=== PATIENT | female | born 1960 | race Caucasian/White ===

== ENCOUNTER 2016-09-12 07:31 | Day surgery (SDC) | payer OTHER ==
[~2016-09-12] VITALS: Ht 167.6 cm; Wt 46.7 kg
[~2016-09-12 07:31] MED LIST: APRESOLINE100 MG PO; APRESOLINE50 MG PO; ASPIRIN81 M2 PO; BUMEX0.5 MG PO; CALCIUM 600 MG1 EACH PO; COLACE100 MG PO; COREG3.125 M1 PO; CYANOCOBAL1000 MCG/2 IM; FLONASE16 G1 BOTH NARES; FOSAMAX70 MG PO; IRON325 MG PO; ISOSORBIDE MONO30 MG PO; LANTUS 3 M100 UNITS1 SC; LEVOTHYROXINE75 MCG PO; LIPITOR40 MG PO; MIRALAX17 GM PO; NOVOLOG PE100 UNITS/ SC; PLAVIX75 MG PO; PROTONIX40 MG PO; VITAMIN B12 PO; ZOLOFT50 MG PO
[2016-09-12 08:49] LABS: HEMATOCRIT 26.7 % (36.0-46.0); MCH 31.8 PG (29.0-34.0); MCHC 33.7 G/DL (30.0-36.0); MCV 94.3 FL (83-99); MEAN PLAT.VOLUME 10.8 uM^3 (9.5-12.4); PLATELET COUNT 145 K/uL (156-360); RBC DIS.WIDTH-CV 14.2 % (11.8-14.6); RBC DIS.WIDTH-SD 49.4 % (39-53); RED BLOOD COUNT 2.83 M/uL (3.80-5.20); WHITE BLOOD COUNT 6.3 K/uL (4.1-10.2)
[2016-09-12 09:05] VITALS: BP 143/63
[2016-09-12 09:07] LABS: ANION GAP 8 MEQ/L (2-14); CHLORIDE 103 MEQ/L (99-109); POTASSIUM 4.4 MEQ/L (3.7-5.4); SAMPLE HEMOLYSIS CHECK 0; SAMPLE ICTERIC CHECK 0; SAMPLE LIPEMIA CHECK 0; SODIUM 138 MEQ/L (136-147)
[2016-09-12 09:12] LABS: GFR ESTIMATE (CALCULATED) 31 mL/min/; GLUCOSE 146 mg/dL (70-99); UREA NITROGEN (BUN) 59 mg/dL (9-23)
[2016-09-12 09:46] LABS: METH RESISTANT S AUREUS PCR NEGATIVE (NEGATIVE)
[2016-09-12 09:52] LABS: PROBE CHECK PASS; SPECIMEN PROCESSING CONTROL PASS
[2016-09-12 14:23] LABS: POINT-OF-CARE USER ID 515036437
[2016-09-12 15:22] VITALS: BP 161/6; BP 164/69
== END 2016-09-12 15:30 | disposition home or self-care (01) ==
LOC: SDC 07:31
PROVIDERS: Ophthalmology
DX: H43.11 Vitreous hemorrhage, right eye (principal); I13.0 Hypertensive heart and chronic kidney disease with heart failure and stage 1 through stage 4 chronic kidney disease, or unspecified chronic kidney disease; H33.41 Traction detachment of retina, right eye; E11.22 Type 2 diabetes mellitus with diabetic chronic kidney disease; N18.4 Chronic kidney disease, stage 4 (severe); I50.9 Heart failure, unspecified; I42.9 Cardiomyopathy, unspecified; D64.9 Anemia, unspecified; G47.31 Primary central sleep apnea; Z86.74 Personal history of sudden cardiac arrest; Z79.4 Long term (current) use of insulin
CPT/HCPCS: 71020; 80048; 82948; 85027; 87641; 93005; J0690; J1100; J2250; J2405; J2795; J3010; J3300